=== PATIENT | male | born 1970 | race Two or more races ===

== ENCOUNTER 2017-12-12 18:04 | Emergency (ER) | payer MEDICAID, OTHER ==
[~2017-12-12] VITALS: Ht 182.9 cm; Wt 78.0 kg
[~2017-12-12 18:04] MED LIST: DIPH25CA83 PO; HYDR-3965 PO; HYDR-569 PO; IBUP-1985 PO
[2017-12-12] MEDS ORDERED: DOCU-28 PO (19:25)
[2017-12-12] MEDS ORDERED: HYDR30CR79 TOP (19:25)
[2017-12-12 19:49] VITALS: BP 135/79
== END 2017-12-12 19:52 | disposition home or self-care (01) ==
LOC: ER 18:06
DX: K62.5 Hemorrhage of anus and rectum (principal); F17.200 Nicotine dependence, unspecified, uncomplicated; F15.10 Other stimulant abuse, uncomplicated; Z88.0 Allergy status to penicillin; Z98.890 Other specified postprocedural states
CPT/HCPCS: 99283